=== PATIENT | male | born 1995 | race Caucasian/White ===

== ENCOUNTER 2017-04-15 06:52 | Day surgery (SDC) | payer MEDICAID ==
[~2017-04-15] VITALS: Ht 177.8 cm; Wt 152.0 kg
[~2017-04-15 06:52] MED LIST: AMOXICILLIN PO; LAMO200T3 PO
[2017-04-15] MEDS ORDERED: LACTATED RINGERS 1,000 ML IV SCH (07:07)
[2017-04-15] MEDS ORDERED: PROPOFOL 10 MG/ML, 20ML ONE (08:46)
[2017-04-15] MEDS ORDERED: DEXAMETHASONE 4 MG/ML, 1ML ONE ×2 (08:46)
[2017-04-15] MEDS ORDERED: LIDOCAINE-MPF 2% ,5ML ONE (08:46)
[2017-04-15] MEDS ORDERED: ONDANSETRON 2MG/ML, 2ML ONE (08:46)
[2017-04-15] MEDS ORDERED: CEFAZOLIN 1,000 MG ONE ×2 (09:06)
[2017-04-15] MEDS ORDERED: FENTANYL PF 100 MCG/2ML ONE ×2 (09:10→09:40)
[2017-04-15] MEDS ORDERED: morphine SULFATE 10 MG/ML, 1ML IV PRN (09:30)
[2017-04-15] MEDS ORDERED: ACETAMINOPHEN 325 MG TABLET PO PRN (09:30)
[2017-04-15] MEDS ORDERED: MEPERIDINE/PF 25MG/0.5ML IVPush PRN (09:30)
[2017-04-15] MEDS ORDERED: HYDROcodone/APAP 7.5-325MG/15ML UDC PO PRN (09:30)
[2017-04-15] MEDS ORDERED: ONDANSETRON 2MG/ML, 2ML IVPush PRN (09:30)
[2017-04-15] MEDS ORDERED: OXYcodone 5 MG/5 ML ORAL.SOL UDC PO PRN (09:30)
[2017-04-15] MEDS ORDERED: HYDROcodone/APAP 7.5-325MG/15ML UDC ONE (09:40)
[2017-04-15] MEDS: FENTANYL PF 100 MCG/2ML IV PRN ×3 (09:45→09:58)
== END 2017-04-15 11:30 | disposition home or self-care (01) ==
LOC: OUT 06:52 → EDBD 09:00 → OUT 11:30
PROVIDERS: ATTEND Urology
DX: N30.90 Cystitis, unspecified without hematuria (principal); E66.9 Obesity, unspecified
CPT/HCPCS: 52204; 88305; J0690; J1100; J2405; J2704; J3010; J3490; J7120

== ENCOUNTER → 2018-07-21 | Outpatient (CLI) | payer MEDICAID | END | disposition home or self-care (01) | LOC: WOUND 09:43 | PROVIDERS: ATTEND Internal Medicine | DX: S91.301A Unspecified open wound, right foot, initial encounter (principal); F41.9 Anxiety disorder, unspecified; E66.9 Obesity, unspecified; Z68.42 Body mass index [BMI] 45.0-49.9, adult; X58.XXXA Exposure to other specified factors, initial encounter; Y93.89 Activity, other specified; Y92.89 Other specified places as the place of occurrence of the external cause; Y99.8 Other external cause status | CPT/HCPCS: 99214 ==

== ENCOUNTER → 2018-08-04 | Outpatient (CLI) | payer MEDICAID | END | disposition home or self-care (01) | LOC: WOUND 10:10 | PROVIDERS: ATTEND Internal Medicine | DX: L89.619 Pressure ulcer of right heel, unspecified stage (principal); F41.9 Anxiety disorder, unspecified; E66.9 Obesity, unspecified; Z68.42 Body mass index [BMI] 45.0-49.9, adult | CPT/HCPCS: 99212 ==